=== PATIENT | female | born 1975 | race Caucasian/White ===

== ENCOUNTER 2017-05-26 17:35 | Emergency (ER) | payer MEDICAID, OTHER ==
[~2017-05-26] VITALS: Ht 157.5 cm; Wt 70.3 kg
[~2017-05-26 17:35] MED LIST: NKM; PRILOSEC20 MG ORAL
--- NOTE | 2017-05-26 18:04 | Emergency Room Report ---
History of Present Illness General Chief Complaint: Eye Problems Source: Patient Present Illness HPI 41 YO Female presents to the ED c/o : left eye redness, discharge, and increased lacrimation x 4days symptoms began in the left eye , then the right eye became symptomatic as well on the second day. Pt. reports photophobia. Denies: Loss of vision, Floaters, Flashing lights, Diplopia/blurry vision. Allergies: Coded Allergies: ASPIRIN (Unverified Allergy, Unknown, Rash, 04/13/14) Patient History Past Medical History: see triage record Past Surgical History: none Pertinent Family History: none Last Menstrual Period: 05/12/17 Now: No Reviewed Nursing Documentation: PMH: Agreed, PSxH: Agreed Nursing Documentation-PMH Past Medical History: No History, Except For Review of Systems All Other Systems: negative except mentioned in HPI Physical Exam Vital Signs Date Time Temp Pulse Resp B/P (MAP) Pulse Ox O2 Delivery O2 Flow Rate FiO2 05/26/17 17:44 98.2 102 17 130/87 98 Room Air Sp02 EP Interpretation: reviewed, normal General Appearance: no apparent distress, alert, GCS 15, non-toxic Head: normocephalic, atraumatic Eyes: bilateral eye normal inspection, bilateral eye PERRL, bilateral eye EOMI , bilateral eye lid inflammation, bilateral eye photophobia, bilateral eye visual acuity - 20/200 L, 20/40 R ENT: hearing grossly normal, normal voice Neck: full range of motion Respiratory: lungs clear, normal breath sounds, speaking full sentences Cardiovascular #1: regular rate, rhythm Musculoskeletal: back normal, gait/station normal, normal range of motion, non- tender Neurologic: alert, oriented x3, responsive, motor strength/tone normal, sensory intact, speech normal, grossly normal Psychiatric: judgement/insight normal Skin: normal color, no rash, warm/dry, well hydrated Lymphatic: no adenopathy Medical Decision Making PA Attestation Dr. Pollack is my supervising Physician whom patient management has been discussed with. Diagnostic Impression: Primary Impression: Bacterial conjunctivitis of both eyes ER Course Pt. presents to the ED c/o : left eye redness, discharge, and increased lacrimation x 4days symptoms began in the left eye , then the right eye became symptomatic as well on the second day. Pt. reports photophobia. -wears corrective lenses, denies contact lens use. Ddx considered but are not limited to: corneal abrasion, acute glaucoma, globe rupture, FB, Corneal Ulcer, conjunctivitis. Iridis, orbital cellulitis,keratitis , sinusitis Vital signs: are WNL, pt. is afebrile H&PE are most consistent with: bacterial conjunctivitis bilaterally. ORDERS: none at this time. ED INTERVENTIONS: -Tylenol PO DISCHARGE: At this time pt. is stable for d/c to home. Will provide printed patient care instructions, and any necessary prescriptions. Care plan and follow up instructions have been discussed with the patient prior to discharge. Last Vital Signs Date Time Temp Pulse Resp B/P (MAP) Pulse Ox O2 Delivery O2 Flow Rate FiO2 05/26/17 17:44 98.2 102 17 130/87 98 Room Air Disposition: HOME, SELF-CARE Condition: Stable Scripts Acetaminophen* (TYLENOL EXTRA STRENGTH*) 500 Mg Tablet 500 MG ORAL Q6H, #20 TAB 0 Refills Prov: Stephanie Yoon 05/26/17 Ofloxacin (OCUFLOX) 5 Ml Drops 2 DROP OP TID for 5 Days, #5 ML 1 Refill Prov: Stephanie Yoon 05/26/17 Patient Instructions: Bacterial Conjunctivitis, [id number] Additional Instructions: Take medications as directed. Follow up with a Dealer Compliance Representative in 3 days, even if your symptoms have resolved. --Please review list of primary care clinics, if you do not already have a primary care provider Return sooner to ED if new symptoms occur, or current symptoms become worse. - Please note that this Emergency Department Report was dictated using [employer] senior technology software, occasionally this can lead to erroneous entry secondary to interpretation by the dictation equipment. Stephanie Yoon May 26, 2017 18:03
[2017-05-26] MEDS ORDERED: TYLENOL EXTRA500 MG ORAL (18:06)
[2017-05-26] MEDS ORDERED: OCUFLOX5 ML OP (18:06)
[2017-05-26 18:40] VITALS: BP 120/86
== END 2017-05-26 18:40 | disposition home or self-care (01) ==
LOC: EMR 17:55
DX: H10.9 Unspecified conjunctivitis (principal); B96.89 Other specified bacterial agents as the cause of diseases classified elsewhere; Z88.6 Allergy status to analgesic agent
CPT/HCPCS: 99283

== ENCOUNTER 2018-03-13 16:52 | Emergency (ER) | payer SELFPAY ==
[~2018-03-13] VITALS: Ht 154.9 cm; Wt 83.9 kg
[~2018-03-13 16:52] MED LIST changes: +OCUFLOX5 ML OP; +TYLENOL EXTRA500 MG ORAL
[2018-03-13] MEDS ORDERED: NKM (16:58)
[2018-03-13 17:05] VITALS: BP 158/90
--- NOTE | 2018-03-13 17:10 | Emergency Room Report ---
History of Present Illness General Chief Complaint: Fever Source: Patient Present Illness HPI Patient present with complaints of cough and congestion ongoing for the past 2- 3 days Denies any chest pain however she feels very weak She had taken Motrin and Tylenol 2 days ago however reports that she ran out Denies any vomiting denies any diarrhea Denies any headache denies any neck pain or photophobia denies any recent travel Allergies: Coded Allergies: ASPIRIN (Unverified Allergy, Unknown, Rash, 03/13/18) Patient History Past Medical History: see triage record Pertinent Family History: none Last Menstrual Period: 03/10/18 Now: No Reviewed Nursing Documentation: PMH: Agreed; PSxH: Agreed Nursing Documentation-PMH Past Medical History: No History, Except For Hx Neurological Problems: Yes - Anxiety Review of Systems All Other Systems: negative except mentioned in HPI Physical Exam Vital Signs Date Time Temp Pulse Resp B/P (MAP) Pulse Ox O2 Delivery O2 Flow Rate FiO2 03/13/18 16:55 100.9 130 18 146/96 97 Room Air Sp02 EP Interpretation: reviewed, normal General Appearance: no apparent distress Head: normocephalic, atraumatic Eyes: bilateral eye PERRL, bilateral eye EOMI ENT: hearing grossly normal, normal pharynx, TMs + canals normal, uvula midline Neck: full range of motion, supple, no meningismus, no bony tend Respiratory: no rhonchi, no respiratory distress, no retraction, no accessory muscle use, crackles - Both lower lobes Cardiovascular #1: normal peripheral pulses, no edema, no gallop, no JVD, no murmur, tachycardia Gastrointestinal: normal bowel sounds, non tender, soft, no mass, no organomegaly, non-distended, no guarding, no hernia, no pulsatile mass, no rebound Genitourinary: no CVA tenderness Musculoskeletal: normal inspection Neurologic: oriented x3, responsive, piece dyer III-XII nml as tested, motor strength/ tone normal, sensory intact Psychiatric: mood/affect normal Skin: warm/dry, palpation normal, other - Mild dependent edema bilaterally Lymphatic: normal inspection, no adenopathy Medical Decision Making Diagnostic Impression: Primary Impression: Pneumonia ER Course Multiple differentials considered Including but not limited to pneumonia, sepsis, other infectious pathology Patient's x-ray is negative Clinically however given the patient's sputum production and the presentation Patient was provided with oral antibiotics heart rate has improved significantly patient feels significantly improved At this time will have conservative outpatient trial Labs Test 03/13/18 17:20 White Blood Count 11.5 K/UL (4.8-10.8) Red Blood Count 4.81 M/UL (4.20-5.40) Hemoglobin 12.7 G/DL (12.0-16.0) Hematocrit 38.5 % (37.0-47.0) Mean Corpuscular Volume 80 FL (80-99) Mean Corpuscular Hemoglobin 26.3 PG (27.0-31.0) Mean Corpuscular Hemoglobin Concent 32.9 G/DL (32.0-36.0) Red Cell Distribution Width 12.7 % (11.6-14.8) Platelet Count 253 K/UL (150-450) Mean Platelet Volume 7.5 FL (6.5-10.1) Neutrophils (%) (Auto) 72.7 % (45.0-75.0) Lymphocytes (%) (Auto) 14.7 % (20.0-45.0) Monocytes (%) (Auto) 8.5 % (1.0-10.0) Eosinophils (%) (Auto) 2.7 % (0.0-3.0) Basophils (%) (Auto) 1.3 % (0.0-2.0) Urine HCG, Qualitative Negative (NEGATIVE) Sodium Level 134 MMOL/L (136-145) Potassium Level 3.5 MMOL/L (3.5-5.1) Chloride Level 98 MMOL/L (98-107) Carbon Dioxide Level 27 MMOL/L (21-32) Anion Gap 9 mmol/L (5-15) Blood Urea Nitrogen 8 mg/dL (7-18) Creatinine 0.7 MG/DL (0.55-1.30) Estimat Glomerular Filtration Rate > 60 mL/min (>60) Glucose Level 98 MG/DL (74-106) Calcium Level 8.6 MG/DL (8.5-10.1) Total Bilirubin 0.2 MG/DL (0.2-1.0) Aspartate Amino Transf (AST/SGOT) 21 U/L (15-37) Alanine Aminotransferase (ALT/SGPT) 22 U/L (12-78) Alkaline Phosphatase 114 U/L (46-116) Total Creatine Kinase 106 U/L (26-308) Creatine Kinase MB 0.9 NG/ML (0.0-3.6) Creatine Kinase MB Relative Index 0.8 Pro-B-Type Natriuretic Peptide 264 pg/mL (0-125) Total Protein 8.2 G/DL (6.4-8.2) Albumin 3.3 G/DL (3.4-5.0) Globulin 4.9 g/dL Albumin/Globulin Ratio 0.7 (1.0-2.7) Lipase 93 U/L (73-393) Urine Opiates Screen Negative (NEGATIVE) Urine Barbiturates Screen Negative (NEGATIVE) Phencyclidine (PCP) Screen Negative (NEGATIVE) Urine Amphetamines Screen Positive (NEGATIVE) Urine Benzodiazepines Screen Negative (NEGATIVE) Urine Cocaine Screen Negative (NEGATIVE) Urine Marijuana (THC) Screen Negative (NEGATIVE) Rhythm Strip Diag. Results EP Interpretation: yes Rate: 110 Rhythm: no PVC's, no ectopy, other - Sinus tach Chest X-Ray Diagnostic Results Chest X-Ray Diagnostic Results : Chest X-Ray Ordered: Yes # of Views/Limited/Complete: 1 View Indication: Chest Pain EP Interpretation: Yes Interpretation: no consolidation, no effusion, no pneumothorax Impression: No acute disease Electronically Signed by: Kannan Whitehead DO Last Vital Signs Date Time Temp Pulse Resp B/P (MAP) Pulse Ox O2 Delivery O2 Flow Rate FiO2 03/13/18 16:55 100.9 130 18 146/96 97 Room Air Status: improved Disposition: HOME, SELF-CARE Condition: Improved Scripts Acetaminophen (Tylenol) 325 Mg Tablet 650 MG ORAL Q6H PRN for Prn Pain/Headache/Temp > 101, #20 TAB 0 Refills Prov: Kannan Whitehead DO 03/13/18 Levofloxacin* (LEVAQUIN*) 500 Mg Tablet 500 MG ORAL DAILY for 7 Days, TAB Prov: Kannan Whitehead DO 03/13/18 Additional Instructions: Patient is provided with the discharge instructions notified to follow up with primary doctor in the next 2-3 days otherwise return to the er with any worsening symptoms. Please note that this report is being documented using [employer] technology. This can lead to erroneous entry secondary to incorrect interpretation by the dictating instrument. Kannan Whitehead DO Mar 13, 2018 17:10
[2018-03-13] MEDS ORDERED: Albuterol ud Inhalation HHN ONE (17:15)
[2018-03-13] MEDS ORDERED: Acetaminophen 500mg (ES) tab ORAL ONE (17:15)
[2018-03-13 17:37] LABS: BASOPHILS % (AUTO) 1.3 % (0.0-2.0); EOSINOPHILS % (AUTO) 2.7 % (0.0-3.0); HEMATOCRIT 38.5 % (37.0-47.0); HEMOGLOBIN 12.7 G/DL (12.0-16.0); LYMPHOCYTES % (AUTO) 14.7 % (20.0-45.0); MEAN CORPUSCULAR VOLUME 80 FL (80-99); MONOCYTES % (AUTO) 8.5 % (1.0-10.0); NEUTROPHILS % (AUTO) 72.7 % (45.0-75.0); PLATELET COUNT 253 K/UL (150-450); RED BLOOD COUNT 4.81 M/UL (4.20-5.40); RED CELL DISTRIBUTION WIDTH 12.7 % (11.6-14.8); WHITE BLOOD COUNT 11.5 K/UL (4.8-10.8)
[2018-03-13 17:49] LABS: ANION GAP 9 mmol/L (5-15); BLOOD UREA NITROGEN 8 mg/dL (7-18); CALCIUM 8.6 MG/DL (8.5-10.1); CARBON DIOXIDE 27 MMOL/L (21-32); CHLORIDE 98 MMOL/L (98-107); CREATININE 0.7 MG/DL (0.55-1.30); POTASSIUM 3.5 MMOL/L (3.5-5.1); SODIUM 134 MMOL/L (136-145)
[2018-03-13 18:07] LABS: ALANINE AMINOTRANSFERASE 22 U/L (12-78); ALBUMIN 3.3 G/DL (3.4-5.0); ALBUMIN/GLOBULIN RATIO 0.7 (1.0-2.7); ALKALINE PHOSPHATASE 114 U/L (46-116); ASPARTATE AMINO TRANSFERASE 21 U/L (15-37); BILIRUBIN,TOTAL 0.2 MG/DL (0.2-1.0); CKMB 0.9 NG/ML (0.0-3.6); CREATINE KINASE 106 U/L (26-308)
[2018-03-13] MEDS ORDERED: Levofloxacin 500mg tab ORAL ONE (18:15)
[2018-03-13] MEDS ORDERED: TYLENOL325 MG ORAL (18:17)
[2018-03-13] MEDS ORDERED: LEVAQUIN500 MG ORAL (18:17)
--- NOTE | 2018-03-13 18:29 | Diagnostic Imaging Report ---
EXAM: XR Chest, 1 View CLINICAL HISTORY: SOB TECHNIQUE: Frontal view of the chest. COMPARISON: No relevant prior studies available. FINDINGS: Lungs: No consolidation. Pleural space: Unremarkable. No pneumothorax. Heart: Unremarkable. No cardiomegaly. Mediastinum: Unremarkable. Bones/joints: No acute fracture. IMPRESSION: No acute cardiopulmonary disease.
[2018-03-13 18:36] VITALS: BP 131/80
== END 2018-03-13 18:36 | disposition home or self-care (01) ==
LOC: EMR 17:10
DX: J18.9 Pneumonia, unspecified organism (principal); F41.9 Anxiety disorder, unspecified; Z88.6 Allergy status to analgesic agent
CPT/HCPCS: 36415; 71045; 80053; 80307; 81025; 82550; 82553; 83690; 83880; 85025; 87040; 94640; 96361; 96374; 99284; J1940

== ENCOUNTER 2019-04-06 07:29 | Emergency (ER) | payer MEDICAID ==
[~2019-04-06] VITALS: Ht 154.9 cm; Wt 72.6 kg
[~2019-04-06 07:29] MED LIST changes: +LEVAQUIN500 MG ORAL; +TYLENOL325 MG ORAL
[2019-04-06] MEDS ORDERED: ZOLOFT25 MG ORAL (07:39)
--- NOTE | 2019-04-06 07:50 | NUR ---
ED Nurse Note:vaginal exam was done by ER MD in my presence
[2019-04-06] MEDS ORDERED: METRONIDAZOLE500 MG ORAL (08:04)
[2019-04-06] MEDS ORDERED: FLUCONAZOLE150 MG ORAL (08:04)
--- NOTE | 2019-04-06 08:04 | Emergency Room Report ---
History of Present Illness General Chief Complaint: Vaginal Source: Patient Present Illness HPI 43-year-old female history of anxiety history of malodorous vaginal discharge times multiple months, patient has been evaluated by the WOOD FURNITURE ASSEMBLER with a negative STI testing as well as vaginal wet preps, patient denies any pain, she is very anxious about the discharge she is unsure what is going on, no chest pain or shortness of breath no fevers no chills, patient has no change in sexual partner no known aggravating relieving factors severity is mild, patient presents for evaluation Allergies: Coded Allergies: ASPIRIN (Unverified Allergy, Unknown, Rash, 03/13/18) Patient History Past Medical History: see triage record Last Menstrual Period: 03/23/19 Now: No Reviewed Nursing Documentation: PMH: Agreed; PSxH: Agreed Nursing Documentation-PMH Past Medical History: No History, Except For Hx Neurological Problems: Yes - Anxiety Review of Systems All Other Systems: negative except mentioned in HPI Physical Exam Vital Signs Date Time Temp Pulse Resp B/P (MAP) Pulse Ox O2 Delivery O2 Flow Rate FiO2 04/06/19 07:34 98.2 104 18 148/93 (111) 98 Room Air General Appearance: well appearing, no apparent distress Head: normocephalic, atraumatic ENT: hearing grossly normal, normal voice Neck: full range of motion, supple Respiratory: no respiratory distress, speaking full sentences Gastrointestinal: non tender, soft Genitourinary: no CVA tenderness, other - Tool Design Draftsperson Tattiana RN there is some white cottage-like discharge, no cervical motion tenderness, no adnexal tenderness Neurologic: alert, normal gait Psychiatric: mood/affect normal Skin: no rash Medical Decision Making Diagnostic Impression: Primary Impression: Vaginal discharge Additional Impressions: Bacterial vaginosis Yeast infection ER Course 43-year-old female already with negative STI testing differential diagnosis includes cervicitis, vaginitis, bacterial vaginosis, Patient with an unremarkable vaginal exam, however the discharge may be consistent with possible yeast infection, will treat empirically, Disposition home with return precautions follow-up with gynecology Last Vital Signs Date Time Temp Pulse Resp B/P (MAP) Pulse Ox O2 Delivery O2 Flow Rate FiO2 04/06/19 07:34 98.2 104 18 148/93 (111) 98 Room Air Disposition: HOME, SELF-CARE Condition: Stable Scripts Fluconazole (FLUCONAZOLE) 150 Mg Tablet 150 MG ORAL DAILY, #2 TAB 0 Refills Prov: Abimael Salcido MD 04/06/19 Metronidazole* (FLAGYL*) 500 Mg Tablet 500 MG ORAL BID for 7 Days, #14 TAB Prov: Abimael Salcido MD 04/06/19 Referrals: NOT CHOSEN IPA/,REFERRING (PCP) [facility] Cardoza [facility]. [facility] Patient Instructions: Bacterial Vaginosis, [id number], Vaginal Yeast Infection, Adult Additional Instructions: The patient was provided with discharge instructions, notified to follow-up with a primary care doctor and or specialist in the next 24-48 hours, and to return to the ED if they have worsening of their symptoms. Please note that this report is being documented using [employer] technology. This can lead to erroneous entry secondary to incorrect interpretation by the dictating instrument. PLEASE TAKE THE FLUCONAZOLE 1 TIME, IF SYMPTOMS PERSIST TAKE ANOTHER DOSE IN 1 WEEK Abimael Salcido MD Apr 06, 2019 08:04
--- NOTE | 2019-04-06 08:05 | NUR ---
ER DISCHARGE NOTE: Patient is cleared to be discharged per ERMD, pt is aox4, on room air, with stable vital signs. pt was given dc and prescription instructions, pt was able to verbalize understanding, pt is able to ambulate with steady gait. pt took all belongings.
[2019-04-06 08:16] VITALS: BP 148/93
== END 2019-04-06 08:20 | disposition home or self-care (01) ==
LOC: EMR 07:45
DX: N89.8 Other specified noninflammatory disorders of vagina (principal); N76.0 Acute vaginitis; B37.9 Candidiasis, unspecified; F41.9 Anxiety disorder, unspecified; Z88.6 Allergy status to analgesic agent
CPT/HCPCS: 81025; 87210; Z7502; 99283